=== PATIENT | male | born 1965 | race Caucasian/White ===

== ENCOUNTER 2020-07-27 11:04 | Day surgery (SDC) | payer BC, SELFPAY ==
[2020-07-25 08:18] LABS: EOSINOPHILS # (AUTO) 0.1 K/uL (0.0-0.4); EOSINOPHILS % (AUTO) 2.4 % (0.0-4.0); HEMATOCRIT 39.2 % (36-54); HEMOGLOBIN 13.4 g/dL (14.0-18.0); LYMPHOCYTES # (AUTO) 1.4 K/uL (1.0-5.5); MEAN CORPUSCULAR HEMOGLOBIN 32 pg (27-31); MEAN CORPUSCULAR HGB CONC 34 % (32-36); MEAN CORPUSCULAR VOLUME 93 fL (79.0-98.0); MONOCYTES # (AUTO) 0.4 K/uL (0.0-1.0); MONOCYTES % (AUTO) 11.3 % (1.7-9.3); NEUTROPHILS # (AUTO) 1.6 K/uL (1.8-7.7); NEUTROPHILS % (AUTO) 46.3 % (40.0-70.0); PLATELET COUNT (AUTO) 263 K/uL (130-430); RED CELL DISTRIBUTION WIDTH 13.1 % (9.0-15.0); WHITE BLOOD COUNT (AUTO) 3.5 K/uL (4.8-10.8)
[2020-07-25 08:42] LABS: CALCIUM 8.8 mg/dL (8.4-11.0); CREATININE 0.91 mg/dL (0.55-1.30); TOTAL BILIRUBIN 0.5 mg/dL (0.0-1.0)
[~2020-07-27] VITALS: Ht 172.7 cm; Wt 65.8 kg
[~2020-07-27 11:04] MED LIST: CEFAZOLIN SOD 2 GM in D5W 50 ML IV ONE
[2020-07-27] MEDS ORDERED: METOCLOPRAMIDE HCL 10 MG/2 ML VIAL IVP ONE (12:56)
[2020-07-27] MEDS ORDERED: DEXAMETHASONE SOD PHOSPHATE 4 MG/ML VIAL IVP ONE (12:56)
[2020-07-27] MEDS ORDERED: NS 1000 ML IV.SOLN IV ONE (12:56)
[2020-07-27] MEDS ORDERED: LR 1,000 ML IV.SOLN IV ONE (12:56)
[2020-07-27] MEDS ORDERED: PROPOFOL 200MG/ 20ML VIAL (DIPRIVAN) IV ONE (12:56)
[2020-07-27] MEDS ORDERED: HYDROmorphone 2 MG/ML VIAL IVP ONE (12:56)
[2020-07-27] MEDS ORDERED: NS IRRIG SOLN 1000 ML IR ONE (12:56)
[2020-07-27] MEDS ORDERED: ROCURONIUM BROMIDE 10 MG/ML (ZEMURON) IV ONE (12:56)
[2020-07-27] MEDS ORDERED: GLYCOPYRROLATE 0.2 MG/ML VIAL IJ ONE (12:56)
[2020-07-27] MEDS ORDERED: ONDANSETRON HCL 4 MG/2 ML VIAL IVP ONE (12:56)
[2020-07-27] MEDS ORDERED: MIDAZOLAM HCL 5 MG/5 ML VIAL IVP ONE (12:56)
[2020-07-27] MEDS ORDERED: SEVOFLURANE 15 MIN GAS INH ONE (12:56)
[2020-07-27] MEDS ORDERED: ePHEDrine sulfate 50 MG/ML VIAL IVP ONE (12:56)
[2020-07-27] MEDS ORDERED: KETOROLAC TROMETHAMINE 30 MG VIAL IVP PRN (14:30)
[2020-07-27] MEDS ORDERED: MORPHINE 4 MG INJ. 4 MG/ML VIAL IVP PRN (14:30)
[2020-07-27] MEDS ORDERED: HYDROmorphone 1 MG/ML INJ. CARTRIDGE IVP PRN ×2 (14:30)
[2020-07-27] MEDS ORDERED: ONDANSETRON HCL 4 MG/2 ML VIAL IVP PRN ×2 (14:30)
[2020-07-27] MEDS ORDERED: ACETAMINOPHEN/CODEINE 300 MG-30 MG TABLET PO PRN (14:30)
[2020-07-27 16:42] VITALS: BP_SYST 136
== END 2020-07-27 16:30 | disposition home or self-care (01) ==
LOC: SDS 11:04 → SMU 11:06 → SDS 16:30
PROVIDERS: ATTEND Surgery
DX: K80.10 Calculus of gallbladder with chronic cholecystitis without obstruction (principal); Z79.899 Other long term (current) drug therapy
CPT/HCPCS: 36415; 47563; 74300; 80053; 85025; 86886; 86900; 86901; 87426; 88304; 93005; C1727; J0690; J1100; J1170; J2250; J2405; J2704; J2765; J3490; J7030; J7060; J7120; Q9967